=== PATIENT | female | born 1945 | race Caucasian/White ===

== ENCOUNTER 2018-07-11 12:12 | Outpatient (CLI) | payer SELFPAY | END 2018-07-11 12:13 | disposition home or self-care (01) | LOC: BICMAMMO 12:12 | PROVIDERS: ATTEND Family Medicine | DX: Z12.31 Encounter for screening mammogram for malignant neoplasm of breast (principal) | CPT/HCPCS: 77063; 77067 ==

== ENCOUNTER 2019-08-24 14:26 | Outpatient (CLI) | payer OTHER ==
--- NOTE | 2019-08-24 15:38 | BD ---
Exam: DEXA Bone Density 08/24/19 HISTORY: Asymptomatic menopausal state. COMPARISON: None. FINDINGS: Lumbar Spine: BMD (g/cm2) T-Score Z-Score L1 0.989 0.0 2.1 L2 1.098 0.6 3.0 L3 1.056 -0.3 2.2 L4 0.963 0.9 1.6 L1-L4 1.023 -0.2 2.1 Left Femoral Neck: 0.564 -2.6 -0.5 Total Left Femur: 0.675 -2.2 -0.5 WHO classification: Osteoporosis. Impression: Osteoporosis with elevated fracture risk. POS: [facility]
--- NOTE | 2019-08-24 16:18 | MMO ---
Bilateral MAMMO Bilat Screen [facility]. CLINICAL HISTORY: Patient is 74 years old and is seen for screening. The patient has no family history of breast cancer. The patient has no personal history of cancer. The patient has a history of right Excisional Biopsy in 1997 - benign and left Excisional Biopsy more than 10 years ago - benign. VIEWS: The views performed were: bilateral craniocaudal with tomosynthesis and bilateral mediolateral oblique with tomosynthesis. FILMS COMPARED: The present examination has been compared to prior imaging studies performed at [facility] on 06/03/2015, 07/08/2016, 07/01/2017 and 07/11/2018. This study has been interpreted with the assistance of computer-aided detection. MAMMOGRAM FINDINGS: There are scattered fibroglandular densities. There are no suspicious masses, suspicious calcifications, or new areas of architectural distortion. IMPRESSION: THERE IS NO MAMMOGRAPHIC EVIDENCE OF MALIGNANCY. A ROUTINE FOLLOW-UP MAMMOGRAM IN 1 YEAR IS RECOMMENDED. THE RESULTS OF THIS EXAM WERE SENT TO THE PATIENT. ACR BI-RADS Category 1 - Negative MAMMOGRAPHY NOTE: 1. A negative mammogram report should not delay a biopsy if a dominant of clinically suspicious mass is present. 2. Approximately 10% to 15% of breast cancers are not detected by mammography. 3. Adenosis and dense breasts may obscure an underlying neoplasm. Reported by: APPLE CALDERÓN MD Electonically Signed: [id number]
== END 2019-08-24 14:27 | disposition home or self-care (01) ==
LOC: BICMAMMO 14:26
PROVIDERS: ATTEND Family Medicine
DX: Z12.31 Encounter for screening mammogram for malignant neoplasm of breast (principal); Z13.820 Encounter for screening for osteoporosis; M81.0 Age-related osteoporosis without current pathological fracture; Z78.0 Asymptomatic menopausal state; Z91.89 Other specified personal risk factors, not elsewhere classified
CPT/HCPCS: 77063; 77067; 77080

== ENCOUNTER 2020-11-17 12:54 | Outpatient (CLI) | payer OTHER | END 2020-11-17 12:55 | disposition home or self-care (01) | LOC: BICMAMMO 12:54 | PROVIDERS: ATTEND Family Medicine | DX: Z12.31 Encounter for screening mammogram for malignant neoplasm of breast (principal); M81.0 Age-related osteoporosis without current pathological fracture; Z78.0 Asymptomatic menopausal state; Z91.89 Other specified personal risk factors, not elsewhere classified | CPT/HCPCS: 77063; 77067; 77080 ==

== ENCOUNTER 2022-04-13 10:58 | Outpatient (CLI) | payer MEDICARE, OTHER | END 2022-04-13 10:59 | disposition home or self-care (01) | LOC: BICMAMMO 10:58 | PROVIDERS: ATTEND Family Medicine | DX: Z12.31 Encounter for screening mammogram for malignant neoplasm of breast (principal); Z91.89 Other specified personal risk factors, not elsewhere classified | CPT/HCPCS: 77063; 77067 ==